=== PATIENT | female | born 2005 | race Two or more races ===

== ENCOUNTER 2023-03-13 20:10 | Emergency (ER) | payer SELFPAY ==
[2023-03-13 20:16] VITALS: BP 113/73; PULSE 108; RESP 18; TEMP 37.1; O2SAT 100; BMI 27.4
--- NOTE | 2023-03-13 21:04 | PC.NURSE ---
patient DC with boyfriend, no further questions about DC. RX sent with patient
--- NOTE | 2023-03-13 21:33 | ED_ITS ---
HPI - General Adult General Chief complaint: Eye Problems Stated complaint: Eye problems Time Seen by Provider: 03/13/23 20:14 Source: patient and family Limitations: no limitations History of Present Illness HPI narrative: 17-year-old female presents the emergency department with tenderness in the left eye, difficulty seeing. She does wear contact lenses. Patient reports that when she went to put in her contacts this morning, she notice some mild discomfort, it has worsened throughout the day. She took her contacts out this evening and states that her pain has been worse ever since in her vision is getting more blurry on that side. She notes watering, light sensitivity and feeling of foreign body sensation. Opposite side is unaffected. No prior history of similar symptoms. Of note, she does have eye lash extensions and v jose carlos extensive thick fingernail work with multiple joules, raised areas and accessories on the tips of her fake nails. She does not recall any specific scratch type injury. No headache, no fever, no purulent drainage. Past medical history she reports is benign, no major long-term health problems. She reports that she is visiting from [place] and planning to ride back in 2 days. ROS is notable for no other generalized, HEENT, vision, skin, neurological changes. Related Data Home Medications Medication Instructions Recorded Confirmed No Known Home Medications 03/13/23 03/13/23 Allergies Allergy/AdvReac Type Severity Reaction Status Date / Time No Known Drug Allergies Allergy Verified 03/13/23 20:21 [facility] Social History Smoking Status: Current every day smoker Do you use any of these nicotine containing products: Vaping Products Second hand tobacco smoke exposure: Yes How often do you have a drink containing alcohol: 2-4 times a month AUDIT-C Alcohol total score: 2 Non-prescribed substance use: denies use Exam Const: Vital Signs, click to edit/add: Vital Signs - 24 hr 03/13/23 20:16 Temperature 98.8 F Pulse Rate [Pulse Oximeter] 108 H Respiratory Rate 18 Blood Pressure [Ri ght Upper Arm] 113/73 Pulse Oximetry 100 Oxygen Delivery Me thod Room Air Documenting provider has reviewed patient's vital signs: yes General appearance: cooperative Other: Appears in mild discomfort, good historian. HENMT: Common normals: normocephalic Head and scalp: normocephalic Face and sinus: normal facial exam Mouth: oral and palatal mucosa normal Throat: posterior oropharynx normal Eye: Common normals: PERRL, conjunctivae normal and no scleral icterus General eye: normal appearance of both eyes Conjunctiva: conjunctiva(e) normal Pupil: PERRL Other: Visual guillaume grossly normal on exam. Pupil, conjunctiva and sclera appear normal bilaterally. No swelling of the lids or abnormal appearance of the lash edges. Eyelash extensions in place. None appear to be contacting the cornea with blinking. Neck & C-Spine: Common normals: no lymphadenopathy Resp: Common normals: normal respiratory effort and no use of accessory muscles Effort & inspection: able to speak in complete sentences Psych: Common normals: speech normal Attitude: calm Speech: normal speech Skin: Common normals: no rashes or lesions noted General skin exam: no rashes or lesions noted Course Course Hospital Course: Differential diagnosis including corneal abrasion, foreign body, keratitis, conjunctivitis, neurological change, eye injury, among others. Patient high risk for mechanical trauma due to eye lash extensions and even more likely contact lens use in the setting of her extensive nail tip accessories. Fluorescence staining exam is performed. Two drops of tetracaine were applied to the left eye, fluorescein staining is performed. Cloudy diffuse central corneal abrasion is noted. No foreign body. For send eye is then gently rinsed out with sterile saline and 1 additional drop of tetracaine is applied for patient comfort. Erythromycin ointment is applied and care discussed. Concern for keratitis in the setting of corneal abrasion. Instructed to keep her contacts out for the next 5 days while the I can heal. Be very careful when reinserting new contacts because of her fake nails and accessories that run a risk of scratching her eye again. If she does not have marked improvement in her symptoms in 48 hours, she needs to be seen by an eye doctor. Discussed local options for this. Erythromycin ointment is dispensed to her. Instructed to apply this every 3-4 hours while awake for the next 5 days. She verbalizes understanding and agreement of plan of care and follow-up instructions. Vital Signs Vital signs: Initial Vital Signs Temperature 98.8 F 03/13/23 20:16 Temperature Source Temporal Artery Scan 03/13/23 20:16 Pulse Rate 108 H 03/13/23 20:16 Respiratory Rate 18 03/13/23 20:16 Blood Pressure 113/73 03/13/23 20:16 Blood Pressure Mean 86 03/13/23 20:16 Blood Pressure Position Sitting 03/13/23 20:16 Pulse Oximetry 100 03/13/23 20:16 Oxygen Delivery Method Room Air 03/13/23 20:16 Vital Signs Temperature 98.8 F 03/13/23 20:16 Pulse Rate 108 H 03/13/23 20:16 Respiratory Rate 18 03/13/23 20:16 Blood Pressure 113/73 03/13/23 20:16 Pulse Oximetry 100 03/13/23 20:16 Oxygen Delivery Method Room Air 03/13/23 20:16 Temperature 98.8 F 03/13/23 20:16 Pulse Rate 108 H 03/13/23 20:16 Respiratory Rate 18 03/13/23 20:16 Blood Pressure 113/73 03/13/23 20:16 Pulse Oximetry 100 03/13/23 20:16 Oxygen Delivery Method Room Air 03/13/23 20:16 Discharge Plan Discharge Clinical Impression: Corneal abrasion, Keratitis Patient Disposition: Home w/ Parent or Adult Condition: Stable Instructions: Corneal Abrasion (DC), Keratitis (ED) Additional Instructions: As we discussed, there is a large scratch on the front part of the pupil known as the cornea. This could have happened from taking contacts in and out or from scratching the eye ball while applying makeup or in sleep. There is no evidence of a foreign body still present. Because of the contacts, this is at a higher risk of infection. I have started you on an antibiotic ointment, erythromycin. Apply the erythromycin 4-5 times daily while awake. You do not need to apply it more often than every 3-4 hours. You only need a small amount, you can apply it at the inner corner of the eye and it will spread everywhere it is needed. Try to lie down after applying so that it can have good contact with the affected area. Use this for the next 5 days. Do not wear contacts during this time. After you have completed treatment, apply a new pair of contact lenses. If her symptoms have not improved markedly in 2 days, you need to be seen by an eye doctor. Here in [facility], I recommend [facility]. They do keep urgent appointments for those that need them, please ask for 1 of these. If your symptoms are improving, you do not need repeat evaluation. Your I will be sore, sensitive to light and watery for the next couple of days. Try to avoid direct sunlight, wear sunglasses when you can and rest. For most, symptoms start to improve quite a bit in 2 days. Activity Level: Activity as Tolerated Discharge Diet: Regular Prescriptions: No Action No Known Home Medications Stand Alone Forms: Verivue Info Instructions
== END 2023-03-13 21:03 | disposition home or self-care (01) ==
LOC: ED 20:59
PROVIDERS: Emergency Provider Family Medicine
DX: S05.02XA Injury of conjunctiva and corneal abrasion without foreign body, left eye, initial encounter (principal); H16.9 Unspecified keratitis
CPT/HCPCS: 99283